=== PATIENT | female | born 1955 | race Caucasian/White ===

== ENCOUNTER 2016-10-23 22:28 | Emergency (ER) | payer MEDICARE, OTHER ==
--- NOTE | 2016-10-23 23:24 | DIAGNOSTIC IMAGING REPORT ---
PROCEDURE: XR TOE - LEFT (great toe). INDICATION: TOE IS BLUE TECHNIQUE: Three views. COMPARISON: Varus is made radiographs of the left foot on 08/03/2016. FINDINGS: Soft tissue swelling of the left great toe. Osseous structures and joint spaces of the left great toe are normal. There is a mildly distracted fracture of the base of the left fifth metatarsal with a persistent fracture line normal. IMPRESSION: 1. Soft tissue swelling. Otherwise normal left great toe. 2. Increasing displaced fracture of the left fifth metatarsal base (delayed union). 3. Findings discussed with Dr. Capri Shepherd.
--- NOTE | 2016-10-23 23:48 | ED ORDER SUMMARY ---
..... Patient: SHAY MCDANIEL OrderSheet [facility] VisitID: [id number] [address] [place] [address] 61y, F Registration Date/Time: 10/23/2016 ORDER SHEET Weight: 123.3 kg (stated) Allergies: NKDA GENERAL ORDERS: Toe Right Urgent (22:47 10/23/2016 Cyn R.N. per protocol) (Ack 22:48 SOCTTurca ER Tech1) (23:23 Cyn R.N.) MEDICATION ORDERS: IV FLUIDS: ORDER SHEET NOTES: [Electronically signed by Beto Bruno R.N. (00:14 10/24/2016)] [Electronically signed by Capri Shepherd MD (14:54 10/29/2016)] [Electronically locked/signed by Beto Bruno R.N. (00:14 10/24/2016)]
--- NOTE | 2016-10-23 23:48 | ED ORDER SUMMARY ---
..... Patient: SHAY MCDANIEL OrderSheet [facility] VisitID: [id number] [address] [place] [address] 61y, F Registration Date/Time: 10/23/2016 ORDER SHEET Weight: 123.3 kg (stated) Allergies: NKDA GENERAL ORDERS: Toe Right Urgent (22:47 10/23/2016 Cyn R.N. per protocol) (Ack 22:48 SCOTTurca ER Tech1) (23:23 Cyn R.N.) MEDICATION ORDERS: IV FLUIDS: ORDER SHEET NOTES: [Electronically signed by Beto Bruno R.N. (00:14 10/24/2016)] [Electronically signed by Capri Shepherd MD (14:54 10/29/2016)] [Electronically locked/signed by Beto Bruno R.N. (00:14 10/24/2016)]
--- NOTE | 2016-10-23 23:48 | ED CLINICAL REPORT ---
Clinical Report - Physicians/Mid Levels [facility] [address] [place] [address] 10/23/2016 22:30 Patient: SHAY MCDANIEL Time Seen: 22:50. Arrived- By private vehicle. Historian- patient. HISTORY OF PRESENT ILLNESS Chief Complaint: Injury to the left great toe. The injury happened several days ago. The patient sustained a direct blow (can of pumpkin soup fell on toe). Occurred at home. Patient is experiencing mild pain. No other injury. REVIEW OF SYSTEMS The patient complains of pain on weight bearing. She has had swelling. No tingling, weakness, numbness, suspected foreign body or skin laceration. All systems otherwise negative, except as recorded above. PAST HISTORY Problems: Fractured Metatarsal. Hypertension. Heart Disease. Diabetes Mellitus. Additional Surgeries: Cholecystectomy. Medications: NovoLOG Subcutaneous. Lantus Subcutaneous. Glipizide Oral. Celexa Oral 20 mg, daily. Cozaar Oral 25 mg, daily. Lovastatin Oral 25 mg, daily. Metformin HCl Oral 500 mg, 2x a day. Allergies: NKDA. SOCIAL HISTORY Smoker- current status unknown. History of drug use: marijuana. No alcohol use. ADDITIONAL NOTES The nursing notes have been reviewed. PHYSICAL EXAM Vital Signs: 10/23/2016 22:37 BP: 141/69. HR: 101. RR: 16. O2 saturation: 98%. Temp: 98.5 F. Pain level now: 2/10. Have been reviewed. Appearance: Alert. Oriented X3. No acute distress. Head: Head atraumatic. Eyes: Eyes normal inspection. ENT: Nose normal. Neck: No decreased ROM in the neck. CVS: Pulses normal. Respiratory: No respiratory distress. Back: ROM normal. Skin: Skin intact. Skin warm and dry. Extremities: Left great toe: mild tenderness, moderate swelling and medium sized ecchymosis of the dorsal aspect, distal phalanx and nail bed; medium sized subungual hematoma present. Neurovascular intact distally. (PT ahs a subungual hematoma that has begun to drain into the germinal matrix area, just pproximal to the nail.). No erythema, laceration, abrasion, puncture wound or foreign body. No deformity. No limitation in movement. No amputation. No ankle injury. Foot and ankle exam otherwise negative. Extremities otherwise negative. Neuro, Vascular and Tendons: Vascular status intact. Sensation intact. Motor intact. Tendon function intact. Gait: Normal gait. Neuro: Oriented X 3. No motor deficit. No sensory deficit. LABS, X-RAYS, AND EKG Lt Foot X-ray: No fracture. Normal alignment. No bony lesion, air in the soft tissue or foreign body. Joint spaces normal. Soft tissue swelling. Views: 3 view foot series. Technique: good. The X-rays were independently viewed by me and interpreted contemporaneously by me. Prior films were not available for comparison. Pulse Oximetry: 10/23/2016 22:37 O2 saturation: 98%. (FIO2 - room air). Interpretation: normal. PROGRESS AND PROCEDURES Course of Care: D/w pt: x-ray is negative for fx. Pt has a subungual hematoma that has tracked proximally to form a hemorrhagic bulla. At this point, I have d/w the pt that this is best left alone, given the pt's diabetes, until the body naturally forms new skin. Pt is agreeable to this. Patient and family counseled in person regarding the patient's stable condition, test results, diagnosis and need for follow-up. Concerns were addressed. Old medical records reviewed. Disposition: Discharged. Condition: stable. CLINICAL IMPRESSION Crush injury to the left great toe. Subungual hematoma of the left great toe. No damage to the nail, foreign body present or laceration present. INSTRUCTIONS (Your x-ray series shows no toe fracture. Your old fracture, on the side of your foot, is still not completely healed. You may follow up with the canoe builder to see if any further options are available to fix this.). Warnings: GENERAL WARNINGS: Return or contact your physician immediately if your condition worsens or changes unexpectedly, if not improving as expected, or if other problems arise. Your Current Medications: CONTINUE TAKING THE FOLLOWING MEDICATIONS: Celexa Oral : 20 mg daily. Cozaar Oral : 25 mg daily. Glipizide Oral. Lantus Subcutaneous. Lovastatin Oral : 25 mg daily. Metformin HCl Oral : 500 mg 2x a day. NovoLOG Subcutaneous. Follow-up: Follow up with your doctor as needed. Understanding of the discharge instructions verbalized by patient. Follow-up with: Mario Pederson DPM, Podiatry, , [facility], [address] [place] [address], [address], [place] [address] Follow up. Call for the next available appointment. Reason for referral: 5th metatarsal fracture not healing. (Electronically signed by Capri Shepherd MD 10/29/2016 14:54)
--- NOTE | 2016-10-23 23:48 | ED CLINICAL REPORT ---
Clinical Report - Physicians/Mid Levels [facility] [address] [place] [address] 10/23/2016 22:30 Patient: SHAY MCDANIEL Time Seen: 22:50. Arrived- By private vehicle. Historian- patient. HISTORY OF PRESENT ILLNESS Chief Complaint: Injury to the left great toe. The injury happened several days ago. The patient sustained a direct blow (can of pumpkin soup fell on toe). Occurred at home. Patient is experiencing mild pain. No other injury. REVIEW OF SYSTEMS The patient complains of pain on weight bearing. She has had swelling. No tingling, weakness, numbness, suspected foreign body or skin laceration. All systems otherwise negative, except as recorded above. PAST HISTORY Problems: Fractured Metatarsal. Hypertension. Heart Disease. Diabetes Mellitus. Additional Surgeries: Cholecystectomy. Medications: NovoLOG Subcutaneous. Lantus Subcutaneous. Glipizide Oral. Celexa Oral 20 mg, daily. Cozaar Oral 25 mg, daily. Lovastatin Oral 25 mg, daily. Metformin HCl Oral 500 mg, 2x a day. Allergies: NKDA. SOCIAL HISTORY Smoker- current status unknown. History of drug use: marijuana. No alcohol use. ADDITIONAL NOTES The nursing notes have been reviewed. PHYSICAL EXAM Vital Signs: 10/23/2016 22:37 BP: 141/69. HR: 101. RR: 16. O2 saturation: 98%. Temp: 98.5 F. Pain level now: 2/10. Have been reviewed. Appearance: Alert. Oriented X3. No acute distress. Head: Head atraumatic. Eyes: Eyes normal inspection. ENT: Nose normal. Neck: No decreased ROM in the neck. CVS: Pulses normal. Respiratory: No respiratory distress. Back: ROM normal. Skin: Skin intact. Skin warm and dry. Extremities: Left great toe: mild tenderness, moderate swelling and medium sized ecchymosis of the dorsal aspect, distal phalanx and nail bed; medium sized subungual hematoma present. Neurovascular intact distally. (PT ahs a subungual hematoma that has begun to drain into the germinal matrix area, just pproximal to the nail.). No erythema, laceration, abrasion, puncture wound or foreign body. No deformity. No limitation in movement. No amputation. No ankle injury. Foot and ankle exam otherwise negative. Extremities otherwise negative. Neuro, Vascular and Tendons: Vascular status intact. Sensation intact. Motor intact. Tendon function intact. Gait: Normal gait. Neuro: Oriented X 3. No motor deficit. No sensory deficit. LABS, X-RAYS, AND EKG Lt Foot X-ray: No fracture. Normal alignment. No bony lesion, air in the soft tissue or foreign body. Joint spaces normal. Soft tissue swelling. Views: 3 view foot series. Technique: good. The X-rays were independently viewed by me and interpreted contemporaneously by me. Prior films were not available for comparison. Pulse Oximetry: 10/23/2016 22:37 O2 saturation: 98%. (FIO2 - room air). Interpretation: normal. PROGRESS AND PROCEDURES Course of Care: D/w pt: x-ray is negative for fx. Pt has a subungual hematoma that has tracked proximally to form a hemorrhagic bulla. At this point, I have d/w the pt that this is best left alone, given the pt's diabetes, until the body naturally forms new skin. Pt is agreeable to this. Patient and family counseled in person regarding the patient's stable condition, test results, diagnosis and need for follow-up. Concerns were addressed. Old medical records reviewed. Disposition: Discharged. Condition: stable. CLINICAL IMPRESSION Crush injury to the left great toe. Subungual hematoma of the left great toe. No damage to the nail, foreign body present or laceration present. INSTRUCTIONS (Your x-ray series shows no toe fracture. Your old fracture, on the side of your foot, is still not completely healed. You may follow up with the director medical affairs to see if any further options are available to fix this.). Warnings: GENERAL WARNINGS: Return or contact your physician immediately if your condition worsens or changes unexpectedly, if not improving as expected, or if other problems arise. Your Current Medications: CONTINUE TAKING THE FOLLOWING MEDICATIONS: Celexa Oral : 20 mg daily. Cozaar Oral : 25 mg daily. Glipizide Oral. Lantus Subcutaneous. Lovastatin Oral : 25 mg daily. Metformin HCl Oral : 500 mg 2x a day. NovoLOG Subcutaneous. Follow-up: Follow up with your doctor as needed. Understanding of the discharge instructions verbalized by patient. Follow-up with: Mario Pederson DPM, Podiatry, , [facility], [address] [place] [address], [address], [place] [address] Follow up. Call for the next available appointment. Reason for referral: 5th metatarsal fracture not healing. (Electronically signed by Capri Shepherd MD 10/29/2016 14:54)
--- NOTE | 2016-10-23 23:48 | ED NURSING NOTES ---
Clinical Report - Nurses [place] [address] [place] [address] 10/23/2016 22:30 [id number] Triage time 2238 PM. Chief Complaint: INJURY TO LEFT FOOT. Alert. No acute distress. RYAN COMA SCORE: [place] Coma Scale: 15- eyes open spontaneously (4); best verbal response- oriented x 4 (5); best motor response- obeys commands (6). --22:45 Beto Bruno R.N. 22:37 10/23/16. BP: 141/69. HR: 101. RR: 16. O2 saturation: 98% on room air. Temp: 98.5 F (oral). Pain level now: 11/01. --22:45 Beto Bruno R.N. Weight: 123.3 kg stated. Height/Length: 62 inches Per Patient. BMI: 49.8. --22:43 Beto Bruno R.N. Medications Celexa Oral 20 mg, daily. Cozaar Oral 25 mg, daily. Lovastatin Oral 25 mg, daily. Metformin HCl Oral 500 mg, 2x a day. --22:41 Beto Bruno R.N. Glipizide Oral. --22:41 Beto Bruno R.N. Lantus Subcutaneous. --22:41 Beto Bruno R.N. NovoLOG Subcutaneous. --22:41 Beto Bruno R.N. Allergies NKDA. --22:41 Beto Bruno R.N. History Arrived by private vehicle. Historian: patient. Accompanied by family. Primary physician (Jesus Alberto). Mechanism of injury: a blow (32oz can of pumpkin). ( Patient presents to the ED with symptoms of a swollen and bruised left great toe. Patient states that she owns a kitten who knocked over a 32 oz can of pumpkin onto her left great toe on Friday night. Patient states that she is diabetic.). She has had numbness. Treatment MATHEMATICIAN: Took ibuprofen. PAST MEDICAL HX: Diabetes mellitus. Hypertension. Tetanus status: up-to-date. SOCIAL HX: Light tobacco smoker (cigarette)- less than 1/2 a pack per day. Alcohol use. (no). History of drug use: marijuana. FALL RISK ASSESSMENT: Fall risk assessment completed. No fall risk identified. NUTRITIONAL RISK ASSESSMENT: The nutritional risk assessment revealed no deficiencies. FUNCTIONAL ASSESSMENT: Functional assessment: no impairments noted. LEARNING NEEDS ASSESSMENT: The learning needs assessment revealed no barriers. SKIN INTEGRITY ASSESSMENT: Skin integrity risk assessment completed. No skin integrity risk identified. --22:45 Beto Bruno R.N. PROBLEMS: Fractured Metatarsal. Hypertension. Heart Disease. Diabetes Mellitus. --22:42 Beto Bruno R.N. ADDITIONAL SURGERIES: Cholecystectomy. --22:42 Beto Brnuo R.N. Interventions ID band on patient. --22:45 Beto Bruno R.N. PHYSICAL ASSESSMENT Ambulatory to room. GENERAL / NEURO / PSYCH: Oriented X 4. Alert. Appears in no acute distress. EXTREMITIES: Capillary refill is less than 2 seconds in the extremities. Extremity pulses are within normal limits. Extremities exhibit normal ROM. Neuro-vascular status intact to the extremity. Normal gait. Left big toe: tenderness, swelling and ecchymosis. Limited movement secondary to pain (diminished flexion and extension). SKIN: Skin intact. Skin is warm and dry. --22:46 Beto Bruno R.N. NURSING PROGRESS NOTES Reassurance given. Call light placed in reach. Side rails up x 1. Bed placed in lowest position. Brakes of bed on. --22:46 Beto Bruno R.N. Point of care testing: performed by nurse. Glucose: 306. Result shown to the ED physician. --22:57 Beto Bruno R.N. Patient walked to radiology with tech. --22:57 Beto Bruno R.N. Point of care testing: performed by nurse. Glucose: 330. Result shown to the ED physician. --00:14 Beto Bruno R.N. DISPOSITION / DISCHARGE Condition at departure: improved. The goals identified in the patient's plan of care were met. No learning barriers present. Discharge instructions provided and reviewed with the patient. Reviewed medication(s). She has no diet restrictions. Patient verbalized understanding. Written instructions provided in German. The patient was discharged home and accompanied by family. She left the Emergency Department ambulatory and via private vehicle. Family member driving. FALL RISK ASSESSMENT: Fall risk assessment completed. No fall risk identified. --00:13 Beto Bruno R.N. 00:12 10/24/16. BP: 114/63. HR: 80. RR: 16. O2 saturation: 100% on room air. Temp: 98.2 F (oral). --00:13 Beto Bruno R.N. Departure time: 0013 AM. --00:13 Beto Bruno R.N. Locked/Released at 10/24/2016 0:14 by Beto Bruno R.N.
--- NOTE | 2016-10-23 23:48 | ED NURSING NOTES ---
Clinical Report - Nurses [place] [address] [place] [address] 10/23/2016 22:30 [id number] Triage time 2238 PM. Chief Complaint: INJURY TO LEFT FOOT. Alert. No acute distress. RYAN COMA SCORE: [place] Coma Scale: 15- eyes open spontaneously (4); best verbal response- oriented x 4 (5); best motor response- obeys commands (6). --22:45 Beto Bruno R.N. 22:37 10/23/16. BP: 141/69. HR: 101. RR: 16. O2 saturation: 98% on room air. Temp: 98.5 F (oral). Pain level now: 11/01. --22:45 Beto Bruno R.N. Weight: 123.3 kg stated. Height/Length: 62 inches Per Patient. BMI: 49.8. --22:43 Beto Bruno R.N. Medications Celexa Oral 20 mg, daily. Cozaar Oral 25 mg, daily. Lovastatin Oral 25 mg, daily. Metformin HCl Oral 500 mg, 2x a day. --22:41 Beto Bruno R.N. Glipizide Oral. --22:41 Beto Bruno R.N. Lantus Subcutaneous. --22:41 Beto Bruno R.N. NovoLOG Subcutaneous. --22:41 Beto Bruno R.N. Allergies NKDA. --22:41 Beto Bruno R.N. History Arrived by private vehicle. Historian: patient. Accompanied by family. Primary physician (Jesus Alberto). Mechanism of injury: a blow (32oz can of pumpkin). ( Patient presents to the ED with symptoms of a swollen and bruised left great toe. Patient states that she owns a kitten who knocked over a 32 oz can of pumpkin onto her left great toe on Friday night. Patient states that she is diabetic.). She has had numbness. Treatment FORENSICS TEAM DIRECTOR: Took ibuprofen. PAST MEDICAL HX: Diabetes mellitus. Hypertension. Tetanus status: up-to-date. SOCIAL HX: Light tobacco smoker (cigarette)- less than 1/2 a pack per day. Alcohol use. (no). History of drug use: marijuana. FALL RISK ASSESSMENT: Fall risk assessment completed. No fall risk identified. NUTRITIONAL RISK ASSESSMENT: The nutritional risk assessment revealed no deficiencies. FUNCTIONAL ASSESSMENT: Functional assessment: no impairments noted. LEARNING NEEDS ASSESSMENT: The learning needs assessment revealed no barriers. SKIN INTEGRITY ASSESSMENT: Skin integrity risk assessment completed. No skin integrity risk identified. --22:45 Beto Bruno R.N. PROBLEMS: Fractured Metatarsal. Hypertension. Heart Disease. Diabetes Mellitus. --22:42 Beto Bruno R.N. ADDITIONAL SURGERIES: Cholecystectomy. --22:42 Beto Bruno R.N. Interventions ID band on patient. --22:45 Beto Bruno R.N. PHYSICAL ASSESSMENT Ambulatory to room. GENERAL / NEURO / PSYCH: Oriented X 4. Alert. Appears in no acute distress. EXTREMITIES: Capillary refill is less than 2 seconds in the extremities. Extremity pulses are within normal limits. Extremities exhibit normal ROM. Neuro-vascular status intact to the extremity. Normal gait. Left big toe: tenderness, swelling and ecchymosis. Limited movement secondary to pain (diminished flexion and extension). SKIN: Skin intact. Skin is warm and dry. --22:46 Beto Bruno R.N. NURSING PROGRESS NOTES Reassurance given. Call light placed in reach. Side rails up x 1. Bed placed in lowest position. Brakes of bed on. --22:46 Beto Bruno R.N. Point of care testing: performed by nurse. Glucose: 306. Result shown to the ED physician. --22:57 Beto Bruno R.N. Patient walked to radiology with tech. --22:57 Beto Bruno R.N. Point of care testing: performed by nurse. Glucose: 330. Result shown to the ED physician. --00:14 Beto Bruno R.N. DISPOSITION / DISCHARGE Condition at departure: improved. The goals identified in the patient's plan of care were met. No learning barriers present. Discharge instructions provided and reviewed with the patient. Reviewed medication(s). She has no diet restrictions. Patient verbalized understanding. Written instructions provided in Vietnamese. The patient was discharged home and accompanied by family. She left the Emergency Department ambulatory and via private vehicle. Family member driving. FALL RISK ASSESSMENT: Fall risk assessment completed. No fall risk identified. --00:13 Beto Bruno R.N. 00:12 10/24/16. BP: 114/63. HR: 80. RR: 16. O2 saturation: 100% on room air. Temp: 98.2 F (oral). --00:13 Beto Bruno R.N. Departure time: 0013 AM. --00:13 Beto Bruno R.N. Locked/Released at 10/24/2016 0:14 by Beto Bruno R.N.
--- NOTE | 2016-10-29 14:54 | ED MAR SUMMARY ---
..... Medication Administration Record [facility] [address] [place], [place] [id number] Patient: SHAY MCDANIEL Visit ID: [id number] 61y, F Weight: 123.3 kg Height/Length: 62 in BMI: 49.8 ALLERGIES: NKDA
--- NOTE | 2016-10-29 14:54 | ED DISCHARGE INSTRUCTIONS ---
Patient: SHAY MCDANIEL General Instructions [facility] VisitID: [id number] [place] [address] 61y, F Registration Date/Time: 10/23/2016 Crush injury to the left great toe. Subungual hematoma of the left great toe. No damage to the nail, foreign body present or laceration present. INSTRUCTIONS (Your x-ray series shows no toe fracture. Your old fracture, on the side of your foot, is still not completely healed. You may follow up with the promotion specialist to see if any further options are available to fix this.). Warnings: GENERAL WARNINGS: Return or contact your physician immediately if your condition worsens or changes unexpectedly, if not improving as expected, or if other problems arise. Your Current Medications: CONTINUE TAKING THE FOLLOWING MEDICATIONS: Celexa Oral : 20 mg daily. Cozaar Oral : 25 mg daily. Glipizide Oral. Lantus Subcutaneous. Lovastatin Oral : 25 mg daily. Metformin HCl Oral : 500 mg 2x a day. NovoLOG Subcutaneous. Follow-up: Follow up with your doctor as needed. Understanding of the discharge instructions verbalized by patient. Follow-up with: Mario Pederson DPM, Podiatry, , [facility], [address] [place] [address], [address], [place] [address] Follow up. Call for the next available appointment. Reason for referral: 5th metatarsal fracture not healing. ADDITIONAL INFORMATION Crush Injury, Foot (No Fx) A crush injury to your foot causes local pain, swelling, and sometimes bruising. There are no broken bones. This injury takes from a few days to a few weeks to heal. If the toenail has been severely injured, it may fall off in 12 weeks. A new one will usually start to grow back within a month. Home care The following guidelines will help you care for your wound at home: You may be given a splint, cast, shoe, or boot to prevent movement at the injury. Unless you were told otherwise, use crutches or a walker anddo notbear weight on the injured foot until cleared by your doctor to do so. (Crutches and walkers can be rented at many pharmacies and surgical/orthopedic supply stores). Do not put weight on a splint; it will break. Keep your leg elevated to reduce pain and swelling. When sleeping, place a pillow under the injured leg. When sitting, support the injured leg so it is level with your waist. This is very important during the first 48 hours. Apply an ice pack (ice cubes in a plastic bag, wrapped in a towel) over the injured area for 20 minutes every 12 hours the first day for pain relief. Continue this 34 times a day until the pain and swelling goes away. You may use acetaminophen or ibuprofen to control pain, unless another pain medicine was prescribed.If you have chronic liver or kidney disease or ever had a stomach ulcer or GI bleeding, talk with your doctor before using these medicines. Keep the splint/cast/boot/shoe dry. When bathing, protect it with a large plastic bag, rubber-banded at the top end. If a fiberglass splint/cast or boot gets wet, you can dry it with a hair-dryer. Unless told otherwise, you can remove a boot or shoe to bathe. If your injury includes exposed cuts or scrapes, clean these daily with soap and water. Apply antibiotic ointment. Watch for the signs of infection listed below. Follow-up care Follow up with your doctor as advised. Return sooner if you are not starting to improve within the nextthreedays. If you were given a splint, it may be changed to a cast or boot at your follow-up visit. Note:X-rays will be reviewed by a radiologist. You will be notified of any new findings that may affect your care. When to seek medical care Get prompt medical attention if any of the following occur: The plaster cast or splint becomes wet or soft The fiberglass cast or splint remains wet for more than 24 hours Increased tightness or pain under the cast or splint Toes become swollen, cold, blue, numb, or tingly Redness, warmth, swelling, drainage from the wound, or foul odor from a cast or splint Fever of 100.4F(38C) or higher, or as directed by your health care provider Subungual Hematoma A subungual hematoma is blood under the nail. It occurs when the finger or toe has been hit or crushed. It causes the nail to look blue. Sometimes, the bone under the nail is also fractured and this will take longer to heal. If the bruise is small and not too painful, it will heal without treatment. If the bruise is large and painful, the blood may need to be drained. If a large area of the nail is damaged, it may be removed by your doctor. If the nail was not removed, it may separate and fall off in the next two weeks. In almost all cases, the nail will grow back from under the cuticle. This takes a few weeks to start and is complete in about 4-6 months for a fingernail and 12 months for a toenail. If the nail bed was damaged, the nail may grow back with a rough or irregular shape. Sometimes the nail may not regrow at all. Home Care: Apply an ice pack (ice cubes in a plastic bag, wrapped in a thin towel) and apply for 20 minutes every 1-2 hours the first day. Continue this 3-4 times a day until the pain and swelling goes away. If the nail was drained: Keep the nail covered with a clean Band-Aid for the next two days. There may be some oozing of blood during that time, so change the Band-Aid as needed. Soak the finger or toe once a day under warm running water. Clean any crust away with a cotton tipped applicator (Q-tip) soaked in soapy water. If the nail was removed: The nail bed (tissue under the nail) is moist, soft and sensitive. This needs to be protected from injury for the first 7-10 days until it dries out and becomes hard. Keep it covered with a dressing or Band-Aid until that time. Bandages tend to stick to a newly exposed nail bed and be hard to remove if left in place more than 24 hours. Therefore, unless you were told otherwise, change dressings every 24 hours. If necessary, soak the dressing off while holding your finger or toe under warm running water. If an x-ray showed a fracture, you should protect the finger or toe for 3-4 weeks while it is healing. If you were prescribed antibiotics to prevent infection, take them as directed until they are all gone. You may use acetaminophen (Tylenol) or ibuprofen (Motrin, Advil) to control pain, unless another medicine was prescribed. [NOTE: If you have chronic liver or kidney disease or ever had a stomach ulcer or GI bleeding, talk with your doctor before using these medicines.] Do not use ibuprofen in children under six months of age. Follow Up With Your Doctor Or This Facility As Advised. If The Nail Was Drained, There Is A Small Risk Of Infection. Watch Carefully For The Signs Listed Below. Get Prompt Medical Attention If Any Of The Following Occur: Increasing redness around the nail Increasing local pain or swelling Pus draining from the nail Fever of 100.4F (38C) or higher, or as directed by your healthcare provider You have been given the following additional information: Crush Injury, Foot/Toe Subungual Hematoma (Electronically signed by Capri Shepherd MD 10/29/2016 14:54)
--- NOTE | 2016-10-29 14:54 | ED MED RECONCILIATION SUMMARY ---
Patient: SHAY MCDANIEL Medication Reconciliation Report [facility] VisitID: [id number] [address] [place] [address] 61y, F Registration Date/Time: 10/23/2016 Weight: 123.3 kg Height/Length: 62 in. BMI: 49.8 ALLERGIES: NKDA The patient's Home Medications are listed below: CONTINUE TAKING THE FOLLOWING MEDICATIONS: Celexa Oral 20 mg, daily Cozaar Oral 25 mg, daily Glipizide Oral Lantus Subcutaneous Lovastatin Oral 25 mg, daily Metformin HCl Oral 500 mg, 2x a day NovoLOG Subcutaneous The source(s) of the original Home Medication information: Not obtained. The following Medications were given to the patient in the Emergency Department: None. The following Medications were prescribed to the patient: None.
--- NOTE | 2016-10-29 14:54 | ED MAR SUMMARY ---
..... Medication Administration Record [facility] [address] [place], [place] [id number] Patient: SHAY MCDANIEL Visit ID: [id number] 61y, F Weight: 123.3 kg Height/Length: 62 in BMI: 49.8 ALLERGIES: NKDA
--- NOTE | 2016-10-29 14:54 | ED MED RECONCILIATION SUMMARY ---
Patient: SHAY MCDANIEL Medication Reconciliation Report [facility] VisitID: [id number] [address] [place] [address] 61y, F Registration Date/Time: 10/23/2016 Weight: 123.3 kg Height/Length: 62 in. BMI: 49.8 ALLERGIES: NKDA The patient's Home Medications are listed below: CONTINUE TAKING THE FOLLOWING MEDICATIONS: Celexa Oral 20 mg, daily Cozaar Oral 25 mg, daily Glipizide Oral Lantus Subcutaneous Lovastatin Oral 25 mg, daily Metformin HCl Oral 500 mg, 2x a day NovoLOG Subcutaneous The source(s) of the original Home Medication information: Not obtained. The following Medications were given to the patient in the Emergency Department: None. The following Medications were prescribed to the patient: None.
== END 2016-10-24 00:12 | disposition home or self-care (01) ==
LOC: ED SRH 22:28
DX: S97.112A Crushing injury of left great toe, initial encounter (principal); S90.112A Contusion of left great toe without damage to nail, initial encounter; W20.8XXA Other cause of strike by thrown, projected or falling object, initial encounter; Y93.89 Activity, other specified; Y99.8 Other external cause status; Y92.009 Unspecified place in unspecified non-institutional (private) residence as the place of occurrence of the external cause; I11.9 Hypertensive heart disease without heart failure; E11.9 Type 2 diabetes mellitus without complications; Z79.4 Long term (current) use of insulin; Z79.84 Long term (current) use of oral hypoglycemic drugs